=== PATIENT | female | born 1985 | race Two or more races ===

== ENCOUNTER 2022-11-19 14:53 | Outpatient (CLI) | payer OTHER | END 2022-11-19 16:25 | disposition home or self-care (01) | LOC: PRENATAL 14:53 | PROVIDERS: ATTEND Obstetrics & Gynecology Maternal & Fetal Medicine | DX: O36.80X0 Pregnancy with inconclusive fetal viability, not applicable or unspecified (principal); O09.529 Supervision of elderly multigravida, unspecified trimester; Z14.8 Genetic carrier of other disease; Z3A.14 14 weeks gestation of pregnancy ==

== ENCOUNTER 2022-12-29 09:42 | Outpatient (CLI) | payer OTHER | END 2022-12-29 10:45 | disposition home or self-care (01) | LOC: PRENATAL 09:42 | PROVIDERS: ATTEND Obstetrics & Gynecology Maternal & Fetal Medicine | DX: O35.9XX0 Maternal care for (suspected) fetal abnormality and damage, unspecified, not applicable or unspecified (principal); O35.3XX0 Maternal care for (suspected) damage to fetus from viral disease in mother, not applicable or unspecified; O09.529 Supervision of elderly multigravida, unspecified trimester; Z14.8 Genetic carrier of other disease; Z3A.20 20 weeks gestation of pregnancy ==

== ENCOUNTER 2023-03-19 14:09 | Outpatient (CLI) | payer OTHER | END 2023-03-19 16:21 | disposition home or self-care (01) | LOC: PRENATAL 14:09 | PROVIDERS: ATTEND Obstetrics & Gynecology Maternal & Fetal Medicine | DX: O26.849 Uterine size-date discrepancy, unspecified trimester (principal); O35.3XX0 Maternal care for (suspected) damage to fetus from viral disease in mother, not applicable or unspecified; O36.8199 Decreased fetal movements, unspecified trimester, other fetus; O09.529 Supervision of elderly multigravida, unspecified trimester; Z3A.31 31 weeks gestation of pregnancy ==

== ENCOUNTER 2023-04-24 12:10 | Inpatient (IN) | payer OTHER ==
[~2023-04-24] VITALS: Ht 172.7 cm; Wt 77.1 kg
[2023-05-12 11:33] LABS: HEMATOCRIT 36.3 % (36.0-45.00); HEMOGLOBIN 12.9 g/dL (12.0-15.00); MEAN CELL VOLUME 94.3 fL (80.00-100.00); MEAN CORPUSCULAR HEMOGLOBIN 33.5 pg (27.00-32.0); MEAN CORPUSCULAR HGB CONC 35.5 g/dl (32.0-36.0); PLATELET COUNT 200 K/uL (150-450); RED BLOOD COUNT 3.85 M/uL (4.00-6.00)
[2023-05-12] MEDS ORDERED: PRENATAL DHA200 MG PO (11:35)
[2023-05-12] MEDS ORDERED: FOLIC ACID20 MG PO (11:35)
[2023-05-12 12:12] LABS: PARTIAL THROMBOPLASTIN TIME 24.5 SECONDS (22.0-34.0)
[2023-05-12 21:54] LABS: ABG PH 7.326 (7.35-7.45); ABG PO2 31.2 mmHg (80-100); ABG pCO2 37.5 mmHg (35-45)
[2023-05-12 21:55] LABS: BASE EXCESS -6.2 mmol/l; BICARBONATE 19.1 mmol/l (23-25); SaO2 52.9 %
[2023-05-13 07:03] LABS: HEMATOCRIT 28.1 % (36.0-45.00); MEAN CELL VOLUME 94.7 fL (80.00-100.00); MEAN CORPUSCULAR HGB CONC 34.2 g/dl (32.0-36.0); PLATELET COUNT 189 K/uL (150-450); RED BLOOD COUNT 2.97 M/uL (4.00-6.00); RED CELL DISTRIBUTION WIDTH 13.7 % (11.5-14.5)
[2023-05-13 07:10] LABS: MEAN CORPUSCULAR HEMOGLOBIN 32.3 pg (27.00-32.0)
[2023-05-13 07:11] LABS: HEMOGLOBIN 9.6 g/dL (12.0-15.00)
== END 2023-05-14 16:40 | disposition home or self-care (01) | DRG 807 ==
LOC: LDR 05-12 08:06 → OB/GYN 05-12 23:11
PROVIDERS: ADMIT Obstetrics & Gynecology; ATTEND Obstetrics & Gynecology
PROC: 10E0XZZ Delivery of Products of Conception, External Approach (ICD-10-PCS; principal; 2023-05-12)
PROC: 0UQG7ZZ Repair Vagina, Via Natural or Artificial Opening (ICD-10-PCS; 2023-05-12)
PROC: 4A1HXCZ Monitoring of Products of Conception, Cardiac Rate, External Approach (ICD-10-PCS; 2023-05-12)
DX: O71.4 Obstetric high vaginal laceration alone (principal); Z37.0 Single live birth; Z3A.39 39 weeks gestation of pregnancy; Z20.822 Contact with and (suspected) exposure to COVID-19

== ENCOUNTER 2023-08-05 08:28 | Day surgery (SDC) | payer OTHER ==
[~2023-08-05 08:28] MED LIST: FOLIC ACID20 MG PO; PRENATAL DHA200 MG PO
== END 2023-08-05 22:00 | disposition home or self-care (01) ==
LOC: CIR.AMB 08:28
PROVIDERS: ATTEND Obstetrics & Gynecology
DX: Z30.2 Encounter for sterilization (principal); Z20.822 Contact with and (suspected) exposure to COVID-19